=== PATIENT | male | born 1985 | race Caucasian/White ===

== ENCOUNTER 2021-11-23 09:02 | Emergency (ER) | payer SELFPAY ==
[2021-11-23 09:08] VITALS: BP 141/86; PULSE 126; RESP 20; TEMP 36.3; O2SAT 97
--- NOTE | 2021-11-23 09:18 | XR_ITS ---
WS: [id number] Portable AP upright chest, 11/23/2021 Clinical Data: dyspnea/cough Comparison: None. Findings: No nodules, masses or effusions are seen. The heart is normal. The pulmonary vascularity is not increased. No pneumonia or pneumothorax is seen. There are monitor leads on the chest wall. XR/XR chest 1V portable [id number] Impression: Negative chest.
--- NOTE | 2021-11-23 09:19 | ECG_ITS ---
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 Measurements Intervals [place] Rate: 107 P: 35 NE: 211 QRS: 10 QRSD: 105 T: 64 QT: 331 QTc: 442 Interpretive Statements SINUS TACHYCARDIA WITH FIRST DEGREE AV BLOCK NONSPECIFIC T-WAVE ABNORMALITY No previous ECG available for comparison Electronically Signed On 11-24-2021 14:33:29 CDT by Kishore Ramirez M.D. [email or web address]onja Media Groupwest campus of delta regional medical centerNewspepperselect medical [facility] [place].[email or web address]/store/OM/[id number]/[email or web address]/[id number]
--- NOTE | 2021-11-23 09:28 | ED_ITS ---
HPI - Arrhythmia/Palpitations General: Chief Complaint: Arrhythmia/Palpitations Stated Complaint: high heartrate Time Seen by Provider: 11/23/21 09:17 Source: patient Mode of arrival: ambulatory History of Present Illness: 36-year-old male presents emergency room with complaint of rapid heart rate. Onset of palpitations approximately 1 hour ago he is not have any chest pain or shortness of breath he has a history of panic attacks in the past he has never had an episode like this prior. He has not been using any iqyc-yxo-shsbscl stimulants or medications. He does not use any nasal sprays decongestants phenylephrine pseudoephedrine etc. He did take a single Benadryl last night. He denies use of any illicit drugs he does not smoke. He recently cut back on his caffeine. He states this feels different than when he had panic attacks in the past. He denies any known history of any arrhythmias. He is not routinely on any beta-blockers or calcium channel blockers. MD complaint: rapid heart beat and heart racing Onset (ago): hour(s) Duration: constant Severity: moderate Context: occurred during rest Associated symptoms: Reports anxiety, nausea, sense of impending doom and short of breath; Deny cough, diaphoresis, muscle cramps, paresthesias, pre-syncope, syncope or vomiting Review of Systems 2 Const: Denies: fever(s), chills, fatigue, malaise or diaphoresis ENMT: Denies: throat pain, ear or mastoid pain, nasal discharge or nasal con gestion Card: Reports: chest pain and palpitations; Denies: syncope or pre-syncope Resp: Denies: dyspnea, productive cough or non-productive cough GI: Reports: nausea; Denies: vomiting : Denies: flank pain, dysuria, urinary frequency or urinary urgency Musc: Denies: muscle cramps Skin/Breast: Denies: rash or pruritus Psych: Reports: anxiety PFSH ED PFSH: Family History Grandmother Cancer greatgrandmother- lung Hypertension Mother Hypertension Father Hypertension Grandfather Hypertension Denies family history of Diabetes Clotting disorder Chronic kidney disease (CKD) Bleeding disorder Thyroid disease Stroke Social History Smoking and tobacco status: never smoked Physical Exam Const: COMMON NORMALS: no acute distress GENERAL APPEARANCE: cooperative and comfortable ORIENTATION/CONSCIOUSNESS: Yes awake, Yes oriented to person, Yes oriented to place and Yes oriented to time HENMT: COMMON NORMALS: normocephalic, atraumatic and hearing grossly normal bi laterally HEAD & SCALP: normocephalic and atraumatic Resp: COMMON NORMALS: normal respiratory effort, No retractions, No use of accessory muscles and clear to auscultation bilaterally AUSCULTATION: clear to auscultation bilaterally Cardio: COMMON NORMALS: regular rhythm and No murmurs present (Cardio) RATE: tachycardic RHYTHM: regular rhythm GI: COMMON NORMALS: Soft to palpation and No hepatosplenomegaly present AUSCULTATION: Yes normoactive bowel sounds PALPATION: Yes Soft to palpation, No Tenderness to palpation present (GI), No Guarding due to palpation present (GI) and Yes No hepatosplenomegaly present Extremity: COMMON NORMALS: normal to inspection, capillary refill normal, no clubbing, cyanosis or edema, no calf tenderness and no pedal edema Neuro: SENSORIUM/ORIENTATION: Yes oriented to person, Yes oriented to place and Yes oriented to time Skin: COMMON NORMALS: no rashes or lesions noted GENERAL SKIN EXAM: no rashes or lesions noted Course Vital Signs: Vital signs: Vital Signs Temperature 97.4 F L 11/23/21 09:08 Pulse Rate 78 11/23/21 13:16 Respiratory Rate 16 11/23/21 13:16 Blood Pressure 142/88 11/23/21 13:16 Pulse Oximetry 98 11/23/21 13:16 Oxygen Delivery Tx thod 11/23/21 10:40 MDM - Arrhythmia/Palpitations Medical Decision Making Labs imaging and EKG reviewed.. Sinus tachycardia its improved we will discharge patient home follow-up with his primary care. We will set him up for 48-hour Holter monitor Medical Records I reviewed the patient's medical records. Lab Data I reviewed the patient's lab results. : 11/23/21 09:45 11/23/21 09:45 Radiology Impressions Chest X-Ray 11/23/21 09:18 Impression: Negative chest. Laboratory Results WBC 6.4 10^3/uL (4.0-10.0) 11/23/21 09:45 RBC 5.48 10^6/uL (4.1-5.3) H 11/23/21 09:45 Hgb 17.2 g/dL (11.7-16.6) H 11/23/21 09:45 Hct 49.9 % (42.0-52.0) 11/23/21 09:45 MCV 91.1 fl (80-94) 11/23/21 09:45 MCH 31.4 pg (28.0-34.0) 11/23/21 09:45 MCHC 34.5 g/dL (30.0-36.0) 11/23/21 09:45 RDW 11.4 % (12.1-15.1) L 11/23/21 09:45 Plt Count 287 10^3/cmm (130-400) 11/23/21 09:45 MPV 9.9 fL (7.4-10.4) 11/23/21 09:45 Neut % (Auto) 60.9 % 11/23/21 09:45 Lymph % (Auto) 28.6 % 11/23/21 09:45 [place] % (Auto) 9.0 % 11/23/21 09:45 Eos % (Auto) 0.8 % 11/23/21 09:45 Baso % (Auto) 0.5 % 11/23/21 09:45 Neut # (Auto) 3.93 10^3/uL (1.8-7.7) 11/23/21 09:45 Lymph # (Auto) 1.8 10^3/uL (0.8-4.8) 11/23/21 09:45 [place] # (Auto) 0.6 10^3/uL (0.2-0.9) 11/23/21 09:45 Eos # (Auto) 0.1 10^3/uL (0.0-0.8) 11/23/21 09:45 Baso # (Auto) 0.0 10^3/uL (0.0-0.1) 11/23/21 09:45 Nucleated RBC % (auto) 0 % 11/23/21 09:45 Nucleated RBCs # 0.0 /100WBC 11/23/21 09:45 Sodium 135 mmol/L (136-145) L 11/23/21 09:45 Potassium 3.4 mmol/L (3.5-5.1) L 11/23/21 09:45 Chloride 100 mmol/L (98-107) 11/23/21 09:45 Carbon Dioxide 22 mmol/L (22-29) 11/23/21 09:45 Anion Gap 16.4 (5-19) 11/23/21 09:45 BUN 10 mg/dL (6-20) 11/23/21 09:45 Creatinine 1.2 mg/dL (0.7-1.2) 11/23/21 09:45 GFR Calculation 67.8 mL/min (90-130) L 11/23/21 09:45 Glucose 86 mg/dL (65-115) 11/23/21 09:45 Calculated Osmolality 278 mOsm/kg (285-295) L 11/23/21 09:45 Calcium 9.7 mg/dL (8.5-10.5) 11/23/21 09:45 Total Bilirubin 0.5 mg/dL (0.15-1.2) 11/23/21 09:45 AST 26 U/L (0-40) 11/23/21 09:45 ALT 41 U/L (0-41) 11/23/21 09:45 Alkaline Phosphatase 79 U/L (40-130) 11/23/21 09:45 Troponin T Baseline 6 ng/L (0-15) 11/23/21 09:45 Troponin T 120 Minute 7.00 ng/L (0-15) 11/23/21 11:55 Delta Troponin T 1.00 ABS# (0-10) 11/23/21 11:55 Total Protein 7.7 g/dL (6.6-8.7) 11/23/21 09:45 Albumin 4.9 g/dL (3.5-5.2) 11/23/21 09:45 Globulin 2.8 g/dL (1.3-4.6) 11/23/21 09:45 Urine Color Yellow (Yellow) 11/23/21 10:35 Urine Appearance Clear (CLEAR) 11/23/21 10:35 Urine pH 5 (5-7) 11/23/21 10:35 Ur Specific Spicer 1.020 (1.005-1.030) 11/23/21 10:35 Urine Protein Neg (Negative) 11/23/21 10:35 Urine Glucose (UA) Norm (Normal) 11/23/21 10:35 Urine Ketones Negative (Negative) 11/23/21 10:35 Urine Blood Neg (Negative) 11/23/21 10:35 Urine Nitrate Negative (Negative) 11/23/21 10:35 Urine Bilirubin Neg (Negative) 11/23/21 10:35 Urine Urobilinogen Norm mg/dL (Negative) 11/23/21 10:35 Ur Leukocyte Esterase Negative (Negative) 11/23/21 10:35 Discharge Plan Discharge Patient Disposition: Home Clinical Impression: Sinus tachycardia, Palpitations Condition: Stable Prescriptions: No Action Toprol XL 25 mg tablet extended release 24 hr 25 mg PO DAILY 90 Days Qty: 90 0RF Rx Instructions: 340B Discharge Orders: Discharge ED (Routine); Ordered 11/23/21 Ordered By: Jeferson Padilla Discharge Diet: Usual diet Discharge Activity: Increase activity as tolerated Patient Instructions: Opioid Safety Activity Restrictions/Additional Instructions: 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 Follow-up with your primary care doctor within the week to reevaluate blood pressure and heart rate. If you have any worsening symptoms or recurrence return to the emergency room. You should also start taking 1 baby aspirin 81 mg daily. Coding Level of Care Code ED Spool Winder for Gale Fwkostas Exam Detailed
[2021-11-23 09:39] VITALS: BP 145/107; PULSE 106; RESP 16; O2SAT 98
[2021-11-23 09:47] LABS: Basophils % 0.5 %; Eosinophils # 0.1 10^3/uL (0.0-0.8); Eosinophils % 0.8 %; Hematocrit 49.9 % (42.0-52.0); Hemoglobin 17.2 g/dL (11.7-16.6); Lymphocytes # 1.8 10^3/uL (0.8-4.8); Lymphocytes % 28.6 %; Mean Corpuscular HGB Conc 34.5 g/dL (30.0-36.0); Mean Corpuscular Hemoglobin 31.4 pg (28.0-34.0); Mean Corpuscular Volume 91.1 fl (80-94); Mean Platelet Volume 9.9 fL (7.4-10.4); Monocytes # 0.6 10^3/uL (0.2-0.9); Neutrophils # 3.93 10^3/uL (1.8-7.7); Neutrophils % 60.9 %; Nucleated Red Blood Cells % 0 %; Platelet Count 287 10^3/cmm (130-400); Red Blood Count 5.48 10^6/uL (4.1-5.3); Red Cell Distribution Width 11.4 % (12.1-15.1); White Blood Count 6.4 10^3/uL (4.0-10.0)
[2021-11-23] MEDS: metoprolol tartrate 1 mg/1 mL SDV 5 mL 5 MG IVP (09:48)
[2021-11-23] MEDS: LORazepam 2 mg Tablet PO (09:48)
[2021-11-23 10:06] LABS: Alanine Aminotransferase 41 U/L (0-41); Albumin Level 4.9 g/dL (3.5-5.2); Alkaline Phosphatase 79 U/L (40-130); Anion Gap 16.4 (5-19); Aspartate Amino Transferase 26 U/L (0-40); Blood Urea Nitrogen 10 mg/dL (6-20); Calcium 9.7 mg/dL (8.5-10.5); Carbon Dioxide 22 mmol/L (22-29); Chloride 100 mmol/L (98-107); Globulin 2.8 g/dL (1.3-4.6); Glomerular Filtration Rate 67.8 mL/min (90-130); Glucose 86 mg/dL (65-115); Osmolality Calculated 278 mOsm/kg (285-295); Potassium 3.4 mmol/L (3.5-5.1); Sodium 135 mmol/L (136-145); Total Bilirubin 0.5 mg/dL (0.15-1.2); Total Protein 7.7 g/dL (6.6-8.7)
[2021-11-23 10:08] LABS: Troponin(5th) Baseline 6 ng/L (0-15)
[2021-11-23 10:40] VITALS: BP 132/86; PULSE 90; RESP 14; O2SAT 98
[2021-11-23 10:52] LABS: Add Urine Microscopic? NO; Charge for UA Resulting for Rev
[2021-11-23 10:55] LABS: Urine Appearance Clear (CLEAR); Urine Color Yellow (Yellow)
[2021-11-23 10:56] LABS: Bilirubin Urine Neg (Negative); Blood Urine Neg (Negative); Glucose Urine UA Norm (Normal); Ketones Urine Negative (Negative); Leukocyte Esterase Urine Negative (Negative); Nitrate Urine Negative (Negative); Protein Urine Neg (Negative); Urobilinogen Urine Norm (Negative); pH Urine 5 (5-7)
[2021-11-23 11:32] VITALS: BP 135/97; PULSE 90; RESP 16
[2021-11-23 13:15] VITALS: BP 151/87
[2021-11-23 13:16] VITALS: BP 142/88; PULSE 78; RESP 16; O2SAT 98
--- NOTE | 2021-12-12 08:58 | DCPLANNER ---
Addendum entered by Ekta Ramirez 12/12/21 14:45: manager ob had the following message from the heart care clinic regarding follow up appointment: Spoke with patient at this time patient does not want the holter monitor at this time. Patient stated he just had a 7 day one. thank you! Original Note: manager ob had message to schedule an out patient 48 hour halter monitor. manager ob faxed signed order to heart care, who will call patient with appointment information. manager ob faxed the information that the test was ordered from the ER to patients primary care physician, Daisy Macias at [facility].
== END 2021-11-23 13:22 | disposition home or self-care (01) ==
PROVIDERS: Emergency Provider Family Medicine
DX: R00.0 Tachycardia, unspecified (principal); R00.2 Palpitations
CPT/HCPCS: 71045; 80053; 81003; 84484; 85025; 93005; 96374; 99285; J3490

== ENCOUNTER → 2022-05-02 14:33 | Outpatient (BNVA) | payer OTHER, SELFPAY | PROVIDERS: PCP Family Medicine; Visit Provider Family Medicine | DX: Z13.1 Encounter for screening for diabetes mellitus (principal); Z13.6 Encounter for screening for cardiovascular disorders; R74.8 Abnormal levels of other serum enzymes; K04.7 Periapical abscess without sinus; R00.0 Tachycardia, unspecified | CPT/HCPCS: 80053; 80061 ==

== ENCOUNTER → 2022-05-23 16:09 | Outpatient (BNVA) | payer OTHER, SELFPAY | PROVIDERS: PCP Family Medicine; Visit Provider Family Medicine | DX: Z13.1 Encounter for screening for diabetes mellitus (principal); Z13.6 Encounter for screening for cardiovascular disorders | CPT/HCPCS: 80053; 80061 ==

== ENCOUNTER 2022-06-16 22:16 | Emergency (ER) | payer OTHER, SELFPAY ==
[2022-06-16 22:33] VITALS: BP 157/108; PULSE 121; RESP 16; TEMP 36.7; O2SAT 95; BMI 30.8
[2022-06-17 00:23] LABS: Basophils # 0.1 10^3/uL (0.0-0.1); Basophils % 0.4 %; Eosinophils # 0.9 10^3/uL (0.0-0.8); Eosinophils % 8.3 %; Hematocrit 52.6 % (42.0-52.0); Hemoglobin 17.9 g/dL (11.7-16.6); Lymphocytes # 1.9 10^3/uL (0.8-4.8); Lymphocytes % 16.8 %; Mean Corpuscular Hemoglobin 31.7 pg (28.0-34.0); Mean Corpuscular Volume 93.1 fl (80-94); Mean Platelet Volume 9.5 fL (7.4-10.4); Monocytes # 0.9 10^3/uL (0.2-0.9); Neutrophils # 7.39 10^3/uL (1.8-7.7); Neutrophils % 66.2 %; Nucleated Red Blood Cells % 0 %; Platelet Count 324 10^3/cmm (130-400); Red Blood Count 5.65 10^6/uL (4.1-5.3); Red Cell Distribution Width 11.6 % (12.1-15.1); White Blood Count 11.2 10^3/uL (4.0-10.0)
[2022-06-17 01:06] LABS: Alanine Aminotransferase 23 U/L (0-41); Albumin Level 4.8 g/dL (3.5-5.2); Alkaline Phosphatase 79 U/L (40-130); Aspartate Amino Transferase 22 U/L (0-40); Blood Urea Nitrogen 11 mg/dL (6-20); Calcium 9.9 mg/dL (8.5-10.5); Carbon Dioxide 26 mmol/L (22-29); Chloride 103 mmol/L (98-107); Globulin 3.2 g/dL (1.3-4.6); Glomerular Filtration Rate 67.4 mL/min (90-130); Glucose 78 mg/dL (65-115); Magnesium 2.1 mg/dL (1.7-2.3); Osmolality Calculated 286 mOsm/kg (285-295); Sodium 139 mmol/L (136-145); Thyroid Stimulating Hormone 2.21 uIU/mL (0.27-4.20); Total Bilirubin 0.5 mg/dL (0.15-1.2)
[2022-06-17 01:29] LABS: Anion Gap 14.1 (5-19); Potassium 4.1 mmol/L (3.5-5.1)
--- NOTE | 2022-06-17 01:57 | ECG_ITS ---
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: : 1985 Requested By: Cyrus Price Order Number: [id number] Hanson MD: Alex Rowland Measurements Intervals [place] Rate: 116 P: 23 MI: 195 QRS: 0 QRSD: 105 T: 54 QT: 310 QTc: 432 Interpretive Statements SINUS TACHYCARDIA POSSIBLE LATERAL MYOCARDIAL INFARCTION , PROBABLY OLD [30 ms Q WAVE IN I/aVL/V5/V6] ABNORMAL RHYTHM ECG Compared to ECG 11/23/2021 09:30:52 Myocardial infarct finding now present First degree AV block no longer present T-wave abnormality no longer present Electronically Signed On 06-17-2022 19:00:41 CDT by Alex Rowland [id number]
--- NOTE | 2022-06-17 02:03 | ED_ITS ---
HPI - Arrhythmia/Palpitations General: Chief Complaint: Arrhythmia/Palpitations Stated Complaint: high heart rate Time Seen by Provider: 06/17/22 01:57 History of Present Illness: 37-year-old male patient comes in for increased heart rate. Patient has a history of sinus tachycardia and takes metoprolol 25 mg daily for it. Patient has recently been put on some azithromycin for a sinus infection and since having that as a medication his heart rate has increased. Patient denies any chest pain or shortness of breath. Patient appears nontoxic. Patient's heart rate is in the 120s. Associated symptoms: Deny nausea or vomiting Review of Systems General: Reports: 10 or more systems reviewed and unremarkable except in HPI and below Const: Denies: fever(s) ENMT: Denies: throat pain Card: Reports: palpitations; Denies: chest pain Resp: Denies: dyspnea GI: Denies: nausea or vomiting Musc: Denies: extremity pain Skin/Breast: Denies: rash PFSH ED PFSH: Surgical History History of hernia repair age 6 Family History Grandmother Cancer greatgrandmother- lung Hypertension Mother Hypertension Father Hypertension Grandfather Hypertension Denies family history of Diabetes Clotting disorder Chronic kidney disease (CKD) Bleeding disorder Thyroid disease Stroke Social History Smoking and tobacco status: never smoked Physical Exam Const: COMMON NORMALS: alert HENMT: COMMON NORMALS: normocephalic HEAD & SCALP: normocephalic Neck/C-Spine: COMMON NORMALS: no meningeal signs Resp: COMMON NORMALS: normal respiratory effort and clear to auscultation bilaterally AUSCULTATION: clear to auscultation bilaterally Cardio: COMMON NORMALS: regular rhythm RATE: tachycardic RHYTHM: regular rhythm GI: COMMON NORMALS: Soft to palpation and non-tender PALPATION: Yes Soft to palpation Back/Pelvis: COMMON NORMALS: thoracic and lumbar spine normal to inspection Extremity: COMMON NORMALS: full ROM Neuro: SENSORIUM/ORIENTATION: Yes alert MENINGEAL SIGNS: Yes no meningeal s igns Skin: COMMON NORMALS: turgor normal GENERAL SKIN EXAM: turgor normal Course Vital Signs: Vital signs: Vital Signs Temperature 98.0 F 06/16/22 22:33 Pulse Rate 121 H 06/16/22 22:33 Respiratory Rate 16 06/16/22 22:33 Blood Pressure 157/108 06/16/22 22:33 Pulse Oximetry 95 06/16/22 22:33 Oxygen Delivery Me thod 06/16/22 22:33 MDM - Arrhythmia/Palpitations Medical Decision Making Patient comes in today for increased heart rate. Patient normally takes 25 mg of metoprolol daily to control his heart rate and usually runs between 60s and 70s. Since starting some azithromycin for dental infection his heart rate has increased. On exam heart rate is tachycardic in the 110s. Abdomen soft nontender. No edema is noted in extremities. No temperature. Differential diagnosis includes but not limited to electrolyte disturbance, sinus tach ycardia, SVT. Laboratory values were unremarkable. Patient was given 5 mg of metoprolol IV which brought his heart rate down into the 70s. Reviewed exam with patient with recommendations of stopping azithromycin and increasing dose of metoprolol to control heart rate until it returns to normal. Patient reported understanding and agreed to plan. Lab Data 06/16/22 00:02 06/16/22 00:02 Laboratory Results WBC 11.2 10^3/uL (4.0-10.0) H 06/16/22 00:02 RBC 5.65 10^6/uL (4.1-5.3) H 06/16/22 00:02 Hgb 17.9 g/dL (11.7-16.6) H 06/16/22 00:02 Hct 52.6 % (42.0-52.0) H 06/16/22 00:02 MCV 93.1 fl (80-94) 06/16/22 00:02 MCH 31.7 pg (28.0-34.0) 06/16/22 00:02 MCHC 34.0 g/dL (30.0-36.0) 06/16/22 00:02 RDW 11.6 % (12.1-15.1) L 06/16/22 00:02 Plt Count 324 10^3/cmm (130-400) 06/16/22 00:02 MPV 9.5 fL (7.4-10.4) 06/16/22 00:02 Neut % (Auto) 66.2 % 06/16/22 00:02 Lymph % (Auto) 16.8 % 06/16/22 00:02 [place] % (Auto) 8.0 % 06/16/22 00:02 Eos % (Auto) 8.3 % 06/16/22 00:02 Baso % (Auto) 0.4 % 06/16/22 00:02 Neut # (Auto) 7.39 10^3/uL (1.8-7.7) 06/16/22 00:02 Lymph # (Auto) 1.9 10^3/uL (0.8-4.8) 06/16/22 00:02 [place] # (Auto) 0.9 10^3/uL (0.2-0.9) 06/16/22 00:02 Eos # (Auto) 0.9 10^3/uL (0.0-0.8) H 06/16/22 00:02 Baso # (Auto) 0.1 10^3/uL (0.0-0.1) 06/16/22 00:02 Nucleated RBC % (auto) 0 % 06/16/22 00:02 Nucleated RBCs # 0.0 /100WBC 06/16/22 00:02 Sodium 139 mmol/L (136-145) 06/16/22 00:02 Potassium 4.1 mmol/L (3.5-5.1) 06/16/22 00:02 Chloride 103 mmol/L (98-107) 06/16/22 00:02 Carbon Dioxide 26 mmol/L (22-29) 06/16/22 00:02 Anion Gap 14.1 (5-19) 06/16/22 00:02 BUN 11 mg/dL (6-20) 06/16/22 00:02 Creatinine 1.2 mg/dL (0.7-1.2) 06/16/22 00:02 GFR Calculation 67.4 mL/min (90-130) L 06/16/22 00:02 Glucose 78 mg/dL (65-115) 06/16/22 00:02 Calculated Osmolality 286 mOsm/kg (285-295) 06/16/22 00:02 Calcium 9.9 mg/dL (8.5-10.5) 06/16/22 00:02 Magnesium 2.1 mg/dL (1.7-2.3) 06/16/22 00:02 Total Bilirubin 0.5 mg/dL (0.15-1.2) 06/16/22 00:02 AST 22 U/L (0-40) 06/16/22 00:02 ALT 23 U/L (0-41) 06/16/22 00:02 Alkaline Phosphatase 79 U/L (40-130) 06/16/22 00:02 Total Protein 8.0 g/dL (6.6-8.7) 06/16/22 00:02 Albumin 4.8 g/dL (3.5-5.2) 06/16/22 00:02 Globulin 3.2 g/dL (1.3-4.6) 06/16/22 00:02 TSH 2.21 uIU/mL (0.27-4.20) 06/16/22 00:02 EKG Data EKG 1: EKG interpretation date: 06/17/22 EKG interpretation time: 02:08 Prior EKG tracings: not available for review Interpretation: EKG shows a sinus tachycardia with a regular rate at [address] elevation or ectopy is noted. No prior exam was available for comparison. Discharge Plan Discharge Patient Disposition: Home Clinical Impression: Sinus tachycardia Condition: Stable Prescriptions: No Action Toprol XL 25 mg tablet extended release 24 hr 25 mg PO DAILY 90 Days Qty: 90 3RF Rx Instructions: 340B Discharge Orders: Discharge ED (Routine); Ordered 06/17/22 Ordered By: Cyrus Shaikh Referrals: Daisy Macias MD [Primary Care Provider] - Discharge Diet: Usual diet Discharge Activity: Increase activity as tolerated Patient Instructions: Supraventricular Tachycardia (ED) Activity Restrictions/Additional Instructions: Increase Toprol from 25 mg to 50 mg daily as needed for better control of heart rate. Avoid macrolide antibiotics, such as azithromycin, in the future to avoid aggravation of tachycardia. Drink plenty of water. Follow-up with primary care for further evaluation and recommendations. Return to ED for new concerns or worsening symptoms. Coding Level of Care Code ED Components Engineer for Gale Alberto
[2022-06-17] MEDS: metoprolol tartrate 1 mg/1 mL SDV 5 mL 5 MG IVP (02:23)
[2022-06-17 02:56] VITALS: BP 116/81; PULSE 76; RESP 19; O2SAT 94
== END 2022-06-17 03:04 | disposition home or self-care (01) ==
PROVIDERS: Emergency Medicine; Emergency Provider Nurse Practitioner Family; PCP Family Medicine
DX: R00.0 Tachycardia, unspecified (principal)
CPT/HCPCS: 36415; 80053; 83735; 84443; 85025; 93005; 96374; 99284; J3490

== ENCOUNTER 2022-10-24 11:48 | Outpatient (CLI) | payer OTHER, SELFPAY ==
[2022-10-24 11:56] VITALS: BMI 29.0
--- NOTE | 2022-10-24 12:00 | ECG_ITS ---
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 Interpretive Statements NAME OF STUDY: TREADMILL STRESS TEST INDICATION: [Chest Pain] EXERCISE DATA: The patient was exercised by Dangelo protocol. Baseline heart rate was 111 beats per minute. Baseline blood pressure was 142/99 millimeters of mercury. Target heart rate was 153 beats per minute. Maximum heart rate achieved was 169 which was 110% of the target heart rate. Maximum blood pressure was 191/91 millimeters of mercury. Total exercise time was 9 minutes. Maximum METs achieved was 10.2. The reason for ending the test was completion of protocol. The patient complained of no symptoms during the stress test, which then resolved at the end of the test. ELECTROCARDIOGRAM: BASELINE: Showed sinus rhythm, normal axis, no significant ST-T changes at the baseline noted. [] EXERCISE: At the peak exercise level, [] No significant ST-T changes suggestive of ischemia noted. [] RECOVERY: During the recovery period, heart rate dropped appropriately. No significant ST-T changes in the recovery suggestive of ischemia noted. [] CONCLUSION: 1. Exercise capacity is good 2. Heart rate response was appropriate 3. Blood pressure response was appropriate 4. Symptoms not suggestive of ischemia. 5. Stress test is negative for ischemia Electronically Signed On 11-06-2022 11:34:34 CDT by Kishore Ramirez M.D. [id number]
[2022-10-24 13:25] VITALS: BP 146/65; PULSE 110
== END 2022-10-24 11:49 | disposition home or self-care (01) ==
PROVIDERS: PCP Family Medicine; Visit Provider Family Medicine
DX: R00.2 Palpitations (principal); R07.9 Chest pain, unspecified
CPT/HCPCS: 93017

== ENCOUNTER → 2023-06-20 13:27 | Outpatient (BNVA) | payer OTHER, SELFPAY | PROVIDERS: PCP Family Medicine; Referring Provider Family Medicine; Visit Provider Family Medicine | DX: I10 Essential (primary) hypertension (principal) | CPT/HCPCS: 80053; 80061; 83540; 83735; 85007; 85027 ==

== ENCOUNTER → 2024-06-23 13:54 | Outpatient (BNVA) | payer BC, SELFPAY | PROVIDERS: PCP Family Medicine; Visit Provider Family Medicine | DX: Z13.6 Encounter for screening for cardiovascular disorders (principal); Z13.220 Encounter for screening for lipoid disorders; Z13.1 Encounter for screening for diabetes mellitus; I10 Essential (primary) hypertension | CPT/HCPCS: 80053; 80061 ==

== ENCOUNTER → 2024-10-05 14:44 | Outpatient (BNVA) | payer BC, MEDICAID, SELFPAY | PROVIDERS: PCP Family Medicine; Visit Provider Internal Medicine Cardiovascular Disease | DX: R07.9 Chest pain, unspecified (principal) | CPT/HCPCS: 93005 ==

== ENCOUNTER 2024-10-08 13:39 | Outpatient (CLI) | payer SELFPAY ==
--- NOTE | 2024-10-08 15:45 | CT_ITS ---
WS: [id number] CT CALCIUM SCORE REASON FOR VISIT: chest pain; Coronary artery disease risk assessment COMPARISON: None TECHNIQUE: Noncontrast coronary CT in combination with quantitative analysis performed on a separate workstation were used to determine CACS (Agatston score) TOTAL EXAM DOSE: 47.37 mGy.cm ECG GATING: Prospective SCAN RANGE: Pulmonary artery bifurcation to Inferior aspect of heart COMPLICATIONS: None FINDINGS: Technical Quality/Examination Quality: Good Limitation: None OVERALL SCORES Total calcium score: 0 Total volume score: 0 mm3 Percentile: 0% ARTERY SCORES Left main coronary artery: 0 Left anterior descending artery: 0 Left circumflex artery: 0 Right coronary artery: 0 OTHER FINDINGS: Mediastinum: Small calcified lymph nodes LEFT hilum. Thoracic aorta: Normal. Lungs: Normal. Upper Abdomen: Normal. CT/CT heart w calcium score 80425 IMPRESSION: 1. Total calcium score is 0. 2. Patient at low risk for cardiovascular event.
== END 2024-10-08 13:40 | disposition home or self-care (01) ==
LOC: RAD 13:40
PROVIDERS: PCP Family Medicine; Visit Provider Internal Medicine Cardiovascular Disease
DX: R07.9 Chest pain, unspecified (principal)
CPT/HCPCS: 75571